=== PATIENT | male | born 1945 | race Caucasian/White ===

== ENCOUNTER 2017-03-31 14:00 | Inpatient (IN) | payer MEDICARE, OTHER ==
[~2017-03-31] VITALS: Ht 160 cm; Wt 88.2 kg
[2017-03-31 15:02] VITALS: BP 129/71; BMI 30.4
--- NOTE | 2017-03-31 15:45 | NUR ---
PATIENT IS ADMITTED THROUGH CONSULT OF DR. MELISSA. HE IS LIVING AT HOME WITH HIS SPOUSE PATIENT HAS A HX OF PARKINSONS, AFIB AND IS ON COUMADIN. RECENTLY HIS SISTER IN NOVEMBER AND IN DECEMBER HE BEGAN DISPLAYING MORE DEPRESSION A SENSE OF GUILT THAT HE DID NOT SEE HER MUCH. HE ALSO LOST A CAT A COUPLE OF WEEKS AGO AND DR. MELISSA SAYS FAMILY STATES THAT IS WHEN THE HALLUCINATIONS BEGAN. 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 PATIENT PRESENTS NEAT, CLEAN AND WEARING COMFORTABLE CLOTHING. HE WEARS GLASSES AND HAS HIS OWN TEETH, NO HEARING IMPAIRMENTS OR SKIN ISSUES. HE DOES HAVE SLIGHT EDEMA TO HIS FEET AND IS WEARING FLIP FLOPS, DID EXPLAIN "YES, THEY ARE COMFORTABLE, BUT THEY ARE NOT SAFE." PATIENT HAS HAD HALLUCINATIONS IN THE PAST TWO WEEKS AND HE IS SEEING THINGS AND HEARING THINGS THAT ARE NOT REAL AND HE IS NOT ABLE TO DIFFERENTIATE WHAT IS REAL OR NOT REAL. 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 FAMILY SAYS THIS IS TRUE AND NOTHING NEW. PATIENT DOES HAVE PARKINSONS AND DEPRESSION AND HE IS HAVING POOR SHORT TERM MEMORY RECALL AND THE CONFUSION HAS WORSENED IN THE PAST TWO WEEKS AND FAMILY FEELS LIKE BEING HERE IS THE BEST THING. PATIENT DID SEE A NEUROLOGIST TODAY AND SEROQUEL WAS PRESCRIBED AND TRAZODONE STOPPED.
[2017-03-31] MEDS ORDERED: SEROQUEL25 MG PO (16:13)
[2017-03-31] MEDS ORDERED: KLONOPIN0.5 MG PO (16:16)
[2017-03-31] MEDS ORDERED: CLONAZEPAM0.25 MG/TA PO (16:18)
[2017-03-31] MEDS ORDERED: COUMADIN6 MG PO (16:19)
[2017-03-31] MEDS ORDERED: FLORANEX / LACT1 TAB PO (16:20)
[2017-03-31] MEDS ORDERED: SINEMET 25-1001 EACH PO (16:21)
[2017-03-31] MEDS ORDERED: PROAIR HFA8.5 GM INH (16:23)
[2017-03-31] MEDS ORDERED: METOPROLOL TART50 MG PO (16:23)
[2017-03-31] MEDS ORDERED: VIAGRA50 MG PO (16:25)
[2017-03-31] MEDS ORDERED: LISINOPRIL10 MG PO (16:25)
[2017-03-31] MEDS ORDERED: PRAVACHOL40 MG PO (16:25)
[2017-03-31] MEDS ORDERED: PROZAC10 MG PO (16:39)
[2017-03-31] MEDS ORDERED: RESTASIS EYE DR30 EA EACH EYE (17:18)
[2017-03-31 19:30] VITALS: BP 141/70
--- NOTE | 2017-03-31 20:30 | NUR ---
ASSESSMENT COMPLETED. RECEIVED IN DAYROOM, SITTING IN CHAIR WATCHING TV. AWAKE AND ALERT X 3. SAYS HE IS IN HOSPITAL TO GET MEDICATIONS FOR ANXIETY. CALM AND COOPPERATIVE WITH ASSESSMENT. COMPLIANT WITH TAKING MEDICATIONS AND UNIT MILIEU. CONTINUE WITH PLAN OF CARE.
[2017-03-31 20:35] LABS: BASOPHILS 0.2 % (0-2); EOSINOPHILS 1.3 % (0-7); HEMATOCRIT 43.8 % (42.0-54.0); HEMOGLOBIN 14.7 g/dL (13.5-17.5); LYMPHOCYTES 27.8 % (15-50); MCH 30.9 pg (26.0-34.0); MCHC 33.6 g/dL (31.0-37.0); MCV 92.2 fL (80.0-100.0); MEAN PLATELET VOLUME 11.5 fL (7.4-10.4); MONOCYTES 12.6 % (2-11); NEUTROPHILS 58.1 % (40-80); PLATELET COUNT 154 10x3/uL (130-400); RBC 4.75 10x6/uL (4.20-6.10); RDW 14.5 % (11.5-14.5); WBC 5.2 10x3/uL (4.8-10.8)
[2017-03-31 20:42] LABS: INR 3.64 (0.85-1.17); PROTIME 36.6 SECONDS (11.6-15.0)
[2017-03-31 20:46] LABS: HEMOGLOBIN A1C 5.8 % (4.8-6.0)
[2017-03-31 21:10] LABS: ANION GAP 11.2 mmol/L (8-16); BILIRUBIN - TOTAL 3.19 mg/dL (0.2-1.3); CALCIUM 8.9 mg/dL (8.5-10.1); CARBON DIOXIDE 31.5 mmol/L (21.0-32.0); CHOL - HDL RATIO 2.1 ratio (2.3-4.9); CREATININE - SERUM 1.2 mg/dL (0.6-1.3); LDL-HDL RATIO 0.7 ratio (1.5-3.5); POTASSIUM - SERUM 3.7 mmol/L (3.5-5.1); PROTEIN - SERUM 7.2 g/dL (6.4-8.2); THYROID STIMULATING HORMONE 0.67 uIU/mL (0.36-3.74)
[2017-04-01 09:07] VITALS: BP 156/86
[2017-04-01 12:03] VITALS: BMI 30.4
--- NOTE | 2017-04-01 12:17 | NUR ---
B) PATIENTS SPOUSE CALLED TO CHECK ON PATIENT. PATIENT IS CALM AND PLEASANT, HE HAS A LOT OF CONFUSION. IT IS DIFFICULT FOR HIM TO FOLLOW SIMPLE DIRECTIONS. HE ADMITS "I DON'T KNOW WHAT TO DO" WITH USING THE WALKER HE HAS TO BE GIVEN DIRECTION AT FIRST. HE DOES AMBULATE WITH A WALKER. HE DID SEE DR. MARTINEZ TODAY. I) PROVIDE PRESCRIBED MEDS. R) PATIENT IS COMPLIANT WITH MEDS AND UNIT MILIEU. P) CONTINUE POC.
[2017-04-01 13:19] LABS: APPEARANCE CLEAR (CLEAR); BILIRUBIN NEGATIVE (NEGATIVE); COLOR YELLOW (YELLOW); GLUCOSE NEGATIVE (NEGATIVE); KETONE NEGATIVE (NEGATIVE); LEUKOCYTE ESTERASE NEGATIVE (NEGATIVE); NITRITE NEGATIVE (NEGATIVE); PROTEIN NEGATIVE (NEGATIVE); UROBILINOGEN NORMAL (NORMAL)
[2017-04-01 19:30] VITALS: BP 118/61
--- NOTE | 2017-04-01 21:00 | NUR ---
B) RECEIVED IN DAYROOM, SITTING IN RECLINER. 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 CALM AND COOPERATIVE WITH ASSESSMENT. CAN AMBULATE INDEPENDENTLY, WITH SLOW GAIT. I) ADMINISTERED PRESCRIBED MEDICATIONS, AFTERWARDS HE BECAME UPSET THAT HE COULD NOT GO ON TO BED. R) MEDICATION COMPLIANT. P) CONTINUE PLAN OF CARE.
[2017-04-02 07:00] VITALS: BP 142/88
[2017-04-02 09:05] LABS: INR 2.23 (0.85-1.17); PROTIME 24.8 SECONDS (11.6-15.0)
[2017-04-02 11:22] VITALS: BMI 30.3
--- NOTE | 2017-04-02 11:23 | NUR ---
UPDATE PT'S SPOUSE TODAY ON PT'S BEHAVIOR. REVIEWED VISITATION TIMES. PT WAS RESTLESS AND AGITATED THIS MORNING BUT HE HAS SINCE CALMED DOWN. NO AGGRESSION NOTED. PT IS CONFUSED AND HAS DIFFICULTY UNDERSTANDING EDUCATION AND REDIRECTION. WILL CONTINUE TO REDIRECT FREQUENTLY. MEDICATIONS GIVEN ORDERED. FALL PRECAUTIONS MAINTAINED. PT GIVEN EDUCATION ON PROPER USE OF WALKER WITH PT SHOWING NO SIGNS OF RETAINING. WILL CONTINUE TO MONITOR AND CONTINUE WITH PLAN OF CARE.
--- NOTE | 2017-04-02 11:36 | PSY ---
PATIENT NAME:JAYNA WEBB MEDICAL RECORD: [id number] : 41 LOCATION:[facility] ADMISSION DATE: 03/31/17 ACCOUNT: [id number] PSYCHIATRIC EVALUATION DATE OF EVALUATION: 04/01/17 IDENTIFYING DATA: The patient is 71 years old and he is admitted to the hospital on a voluntary basis secondary to hallucinations. CHIEF COMPLAINT: "I am here to get straightened out." HISTORY OF PRESENT ILLNESS: The patient is a very nice gentleman who lives at home with his . He has a history of Parkinson disease and recently, his sister . At that time, he began displaying a lot of depressive symptoms including some guilt that he did not see her more. He also had a pet about a week ago and he was very attached to the pet. Apparently shortly after this, he began having active hallucinations. The patient endorses numerous neurovegetative depressive symptoms, but then says that he is not actually depressed. He has no history of substance abuse. He was recently started by his neurologist on a low dose of Seroquel. PAST MEDICAL HISTORY: Of course is most significant for the Parkinson disease, which the patient says has been present for many years. He indicated several decades, which I doubt is not at all accurate. He also has a history of atrial fibrillation. PAST PSYCHIATRIC HISTORY: None. FAMILY HISTORY: Unknown. ALLERGIES: No known drug allergies. CURRENT MEDICATIONS: Include Prozac, lisinopril, Coumadin, Klonopin, Seroquel, Sinemet, Pravachol, Lopressor, Ventolin. SOCIAL HISTORY: The patient is and has adult children. He has functioned well both socially and occupationally throughout much of his adult life. He has no history of legal entanglements or substance abuse. MENTAL STATUS EXAMINATION: The patient is awake, alert and oriented to person and place. He is mistaken about the date. I know it was a casual mistake, but it is wrong. He says that the year is 2006 and when asked to repeat that he says it again. He does know the month. I am sure he meant 2016, but again he missed the answer to the question. He states that he really is not sure why he is here except that he needs some help. He is vague about what kind of help and when asked about hallucinations, he dismisses it or minimizes any of the symptoms. He also endorses lots of depressive symptoms, but then says he is not depressed. His mood is euthymic. His affect is appropriate. Thought processes are circumstantial. Memory and concentration are moderately impaired. His abstraction abilities are mildly impaired. He denies that he would seek to harm himself or others and he denies psychotic symptoms. ASSETS: Supportive family members. LIABILITIES: Limited insight. DIAGNOSTIC IMPRESSION: AXIS I: 1. Major depression, moderate severity without psychotic features. 2. Parkinson's related dementia. AXIS II: None. AXIS III: Parkinson disease, atrial fibrillation. AXIS IV: Moderate stressors. AXIS V: Global assessment of functioning is 35. PLAN: At this time, the patient is admitted to the hospital secondary to psychotic symptoms probably associated with the Parkinson disease and the Sinemet as opposed to psychotic symptoms associated with a major depression. Nevertheless, I do not think he is seriously and significantly depressed and I am going to treat him with an antidepressant medication. He is on Prozac. I am not sure how long he has been on that, but I likely will change that to a different medication. He has only been on the Seroquel for a few days and I think that is a reasonable choice and dose given the Parkinson disease. I think his long-term prognosis is guarded. He clearly has a progressive disease and of course the dementia is almost certainly associated with the Parkinson disease, especially if he has had it for a long time. The level of impairment may be misleading given his underlying depressive symptoms associated with the of a pet and his sister this year. TRANSINT:[id number] Voice Confirmation ID: [id number] DOCUMENT ID: [id number] SACHA MARTINEZ MD at 1136 CC: [id number] DICTATION DATE: 04/01/17 1120 BRAND LEAD: 04/01/17 1142 ADM IN [place] [id number] [place] [address]
--- NOTE | 2017-04-02 18:05 | NUR ---
UPDATED PT'S FAMILY ON MEDICATIONS AND PT'S BEHAVIOR.
[2017-04-02 19:30] VITALS: BP 142/75
--- NOTE | 2017-04-03 02:52 | NUR ---
B) Patient is alert and oriented to self and being in a hospital, calm and cooperative, very careful with answers to questions to hide his dementia, will change subject or get others to answer for him, or use vague responses I) Administtered perscribed medications, monitored for safety, R) Medication compliant, no hallucinations noted this shift, pleasant and friendly to staff, P) Continue plan of care.
[2017-04-03 08:13] VITALS: BP 153/69
[2017-04-03 11:12] LABS: VITAMIN D 25 HYDROXY 30.7 ng/mL (30.0-100.0)
--- NOTE | 2017-04-03 13:00 | NUR ---
Alert and oriented to name only, very vague responses to questions. Calm and pleasant with care. Monitor for any hallucinations, redirect and reorient. Compliant with medications. No hallucinations noted at this time, patient does keep getting up and thanking everybody and then turns away as if he is leaving, redirected that he is not discharging today.. redirects easily and goes to sit back down. Safety maintained. Continue plan of care.
[2017-04-03 19:19] VITALS: BP 189/98
--- NOTE | 2017-04-03 20:01 | NUR ---
PATIENT TOOK CHAIR AND HIT DOOR IN AN ATTEMPT TO BUST OUT GLASS. PRN ATIVAN 0.5 MG IM GIVEN FOR HIGH ANXIETY.
--- NOTE | 2017-04-03 22:34 | NUR ---
RECEIVED IN HALLWAY. VERY CONFUSED. EXIT SEEKING. NOTED ANXIETY. KICKING DOORS TO GET OUT. CALM AND COOPERATIVE WITH ASSESSMENTS. UNABLE TO REDIRECT AND REORIENT AT TIMES. RESTING IN BED EYES OPEN AT THIS TIME. CONTINUE PLAN OF CARE
[2017-04-04 03:09] LABS: RAPID PLASMA REAGIN Non Reactive (Non Reactive)
[2017-04-04 09:04] VITALS: BP 203/109
--- NOTE | 2017-04-04 09:15 | NUR ---
AWAKE AND ORIENTED TO SELF AND BEING IN HOSPITAL. SITTING IN CHAIR QUIET AND WATCHING PEERS AND STAFF. CALM AND COOPERATIVE WITH ASSESSMENT, BUT CONFUSED. NO AGGRESSION OF HALLUCINATIONS NOTED. ADMINISTER PRESCRIBED MEDICATIONS. COMPLIANT WITH TAKING MEDS. FALLS AND SAFETY MAINTAINED. CONTINUE POC.
[2017-04-04 11:22] LABS: INR 1.88 (0.85-1.17); PROTIME 21.6 SECONDS (11.6-15.0)
--- NOTE | 2017-04-04 14:08 | PN ---
PATIENT:JAYNA WEBB MEDICAL RECORD: [id number] LOCATION:[facility] ADMISSION DATE: 03/31/17 PROGRESS NOTE DATE OF SERVICE: 04/03/2017 SUBJECTIVE: The patient's case was discussed with staff. He has no new complaint. OBJECTIVE: The patient is in good behavioral control. He is very pleasant, but clearly quite confused. He does not really realize he is so confused or I suspect he does not appreciate to what degree. 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 I think the patient is at least moderate in his severity, he may even be closer to severe and we will find out tomorrow when he is tested by Dr. Donna Menard. ASSESSMENT: No change in diagnoses. PLAN: I am not going to continue the Prozac. I have discontinued it altogether. I am not sure he needs an antidepressant medication or at least I believe he does not need one currently. I am concerned about the number of medicines he takes with potential interactions that may have unforeseen consequences. Of course, in general, it is preferable to maintain anyone at any age and condition on his few medicines at a lower dose as possible, and so consistent with this line of thinking, I do not see an indication for the Prozac, which probably is one of at least well tolerated SSRIs in the elderly to begin with. TRANSINT:[id number] Voice Confirmation ID: [id number] DOCUMENT ID: [id number] SACHA MARTINEZ MD at 1408 CC: [id number] DICTATION DATE: 04/03/17 1504 PIT INSPECTOR: 04/03/17 191 ADM IN [facility] [address] [place] [address]
[2017-04-04 19:34] VITALS: BP 176/110
[2017-04-04 19:42] VITALS: BP 176/110
--- NOTE | 2017-04-04 21:38 | NUR ---
RECEIVED AT NURSES STATION. STANDING AND TALKING TO PEER. VERY CONFUSED. CALM AND COOPERATIVE WITH CARE AND ASSESSMENTS. NO SIGNS OF AGGRESSION. NOT EXIT SEEKING THIS PM. REDIRECT AND REORIENT NEEDED. RESTING IN BED EYES CLOSED. CONTINUE PLAN OF CARE
[2017-04-05 06:10] LABS: PROTIME 22.7 SECONDS (11.6-15.0)
[2017-04-05 07:32] VITALS: BP 178/108
--- NOTE | 2017-04-05 12:17 | PN ---
PATIENT:JAYNA WEBB MEDICAL RECORD: [id number] LOCATION:[facility] ADMISSION DATE: 03/31/17 PROGRESS NOTE DATE OF SERVICE: 04/04/2017 SUBJECTIVE: The patient's case was discussed with staff. He has no new complaint. OBJECTIVE: The patient has been tested by Dr. Donna Sepulveda and scored worse than I would have guessed. 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 I do not mean this in a way that he is not honest or genuine I just mean that he is outgoing and has an extrovert personality. I suppose that this gives him the impression of being more intact because he is more socially aware of his surroundings. I would have guessed he was going to score in the 17 or 18 range rather than the 13 range. This places him in the severe category. Last night, he became acutely confused and agitated. He took a chair and was hitting it against the wall. He did require p.r.n. medication because of this agitation. ASSESSMENT: No change in diagnoses. PLAN: Unfortunately, the patient's condition is worse than I anticipated. I must recommend alf care for him given that I cannot predict if or when he is going to become agitated and this would be a real danger for his elderly . I am not sure how she is going to take this news or information. I am also going to change his antipsychotic medicine from Seroquel to Trilafon. His group home prognosis is unfortunately poor. TRANSINT:[id number] Voice Confirmation ID: [id number] DOCUMENT ID: [id number] SACHA MARTINEZ MD at 1217 CC: [id number] DICTATION DATE: 04/04/17 1432 BAG SHAKER: 04/04/17 2230 ADM IN [facility] [address] [place] [address]
--- NOTE | 2017-04-05 16:43 | NUR ---
ASSESSMENT COMPLETED PER FLOW SHEET. CALM AND COOPERATIVE WITH ASSESSMENT AND CARE. HE STILL IS VERY CONFUSED AT TIMES. ADMINISTERED PRESCRIBED MEDS. MONITOR FOR SAFETY. CONTINUE PLAN OF CARE.
--- NOTE | 2017-04-05 18:00 | NUR ---
PATIENT TOLD "I AM FEELING SUICIDAL NOW." AFTER NURSE SPOKE WITH , I TALKED WITH PATIENT. HE DENIED SELF HARM OR SUICIDAL PLAN. SAYS HE FELT SCARED LAST NIGHT THAT HE WAS GOING TO OR SOMETHING HAPPEN TO HIM. HE WAS HEARING VOICES IN HIS HEAD. HE ATE 50% OF HIS SUPPER AFTER TALKING WITH HIS . "I FEEL ANXIOUS OR SCARED REALLY." ENCOUAGE HIM TO EXPRESS HIS FEELINGS TO STAFF.
--- NOTE | 2017-04-06 00:31 | NUR ---
B) Recieved patient in the hallway, alert and oriented to self, calm and cooperative, I) Administered perscribed medications, monitored for safety, R) Medication compliant, difficulty falling asleep, P) Continue plan of care.
--- NOTE | 2017-04-06 00:41 | NUR ---
PRN Klonipin 0.5 mg PO given for anxiety at 00:40.
[2017-04-06 07:48] VITALS: BP 181/92
--- NOTE | 2017-04-06 09:00 | NUR ---
ASSESSMENT COMPLETED PER FLOW SHEET. CALM AND COOPERATIVE WITH ASSESSMENT AND CARE. WILL CONTINUE PLAN OF CARE.
--- NOTE | 2017-04-06 10:51 | NUR ---
LATE ENTRY FROM 04/05: SW SPOKE WITH PT'S , TONEY, ON THE PHONE ABOUT DISCHARGE PLANNING AND PT'S MEDICATION REGIMEN. SW DISCUSSED THE CARING PLACE AND BEING PROACTIVE WITH TWO DIFFERENT LEVEL OF CARE PLANS. TONEY SEEMED TO BE LEANING TOWARDS TAKING PT HOME WITH 20/03 CARE.TONEY VERBALIZED UNDERSTANDING OF DISCHARGE NEEDS AND MEDICATION REGIMEN.
--- NOTE | 2017-04-06 12:43 | NUR ---
Nutrition Follow Up: Pt is eating 78% meal avg on a regular diet. No new wt to assess. +BM 04/05/17. Meds and labs reviewed. Rec continue current diet. RD following.
--- NOTE | 2017-04-06 13:34 | PN ---
PATIENT:JAYNA WEBB MEDICAL RECORD: [id number] LOCATION:[facility] ADMISSION DATE: 03/31/17 PROGRESS NOTE DATE OF SERVICE: 04/05/2017 SUBJECTIVE: The patient's case was discussed with staff. He has no new complaint. OBJECTIVE: The patient is in good behavioral control with poor insight about his condition. He generally tolerates his medicines well. He has not been agitated or disruptive today. As mentioned yesterday, the testing from Dr. Donna Sepulveda indicates a severe level of impairment requiring 49-kuxn-t-day supervision. The findings have been explained to the family, they understand the situation, but are visibly shaken by them. The family is going to have to consider where they want the patient housed. Obviously home is the least restrictive setting; however, given his tendency to become quite agitated and confused and even delusional at times particularly at night I must say I do not think this is a safe situation for the patient's . That has been explained, of course the decision and whether or not the risk and benefit analysis lands in favor of keeping him at home is their decision my role is to explain the situation and make what I think is the safest recommendation, which he is a intermediate. ASSESSMENT: No change in diagnoses. PLAN: Current medicines have been reviewed and will be maintained. TRANSINT:[id number] Voice Confirmation ID: [id number] DOCUMENT ID: [id number] SACHA MARTINEZ MD at 1334 CC: [id number] DICTATION DATE: 04/05/17 1229 CABINETMAKER HELPER: 04/05/17 2103 ADM IN [place] [address] [place] [address]
[2017-04-06 20:10] VITALS: BP 166/93
--- NOTE | 2017-04-07 03:04 | NUR ---
B) Patient alert and oriente dto self, very confused at times, cooperative and redirects easily, I) Administered perscribed medications, PRN Ativan 0.5 mg PO given for anxiety at 00:58, R) Medication compliant, resting quietly now in bed, P) Continue plan of care.
[2017-04-07 07:54] VITALS: BP 187/96
--- NOTE | 2017-04-07 16:14 | NUR ---
restless at times but easily redirected. no aggression noted. medications given as ordered. fall precautions maintained. will continue to monitor and continue with plan of care. updated spouse and pt's behavior.
[2017-04-07 19:30] VITALS: BP 131/72
--- NOTE | 2017-04-08 00:45 | NUR ---
B) Patient alert and oriented to self, calm and cooperative, very confused, wanders at times, I) Administered perscribed medicatiosn, monitored for safety and behaviors, R) Medication compliant. no outburst or behaviors noted, P) Continue plan of care.
[2017-04-08 07:47] VITALS: BP 178/92
[2017-04-08 08:19] LABS: INR 1.52 (0.85-1.17); PROTIME 18.2 SECONDS (11.6-15.0)
[2017-04-08 19:30] VITALS: BP 144/84
--- NOTE | 2017-04-09 02:59 | NUR ---
B) Patient alert and oriented to self, restless and wannders at times, very confused, I) Administered scheduled medications, redirected as needed, monitored forr falls and safety, R) Medication compliant, social with staff, awakens several times at night, P ) Continue plan of care.
--- NOTE | 2017-04-09 05:30 | PN ---
PATIENT:JAYNA WEBB MEDICAL RECORD: [id number] LOCATION:[facility] ADMISSION DATE: 03/31/17 PROGRESS NOTE DATE OF SERVICE: 04/07/2017 SUBJECTIVE: No new complaint. OBJECTIVE: Staff report that the patient's family has informed us that the current hospital dose of Sinemet is less than what he had been receiving at home, he was receiving actually 1-1/2 tablets 3 times a day. This will be changed. The patient has done well over the last 24 hours. No evidence of severe agitation. On exam, mood is euthymic. Affect is rather constricted. Speech is low in volume and slow in production and rate. Content of thought is negative for overt psychosis. Sensorium unchanged. ASSESSMENT: No change in diagnosis. PLAN: 1. Advance Sinemet to 1-1/2 tabs t.i.d. 2. Continue all other current medications. 3. Continue supportive therapy. TRANSINT:[id number] Voice Confirmation ID: [id number] DOCUMENT ID: [id number] CHRISTIAN MAY III, MD at 0530 CC: [id number] DICTATION DATE: 04/07/17 1232 DIESEL ENGINE TESTER: 04/07/172010 ADM IN [facility] [address] [place] [address]
[2017-04-09 08:07] VITALS: BP 182/98
[2017-04-09 10:46] LABS: PROTIME 21.4 SECONDS (11.6-15.0)
[2017-04-09 10:49] LABS: INR 1.85 (0.85-1.17)
--- NOTE | 2017-04-09 17:19 | NUR ---
CONFUSED BUT KNOWS HE IS IN HOSPITAL,MONTH AND YEAR.DENIES HALLUCINATIONS .IS COMPLIANT WITH STAFF AND MEDS.WILL CONTINUE WITH PLAN OF CARE,MONITOR FOR CHANGES AND SAFETY.
[2017-04-09 20:01] VITALS: BP 138/70
--- NOTE | 2017-04-09 21:24 | NUR ---
RECIEVED IN DAYROOM. SITTING IN RECLINER. CALM AND COOPERATIVE WITH CARE AND ASSESSMENTS. NO SIGNS OF HALLUCIANTIONS. ENCOURAGE TO EXPRESS NEEDS. REORIENT NEEDED. CONTINUES TO SIT QUIETLY IN CHAIR. CONTINUE PLAN OF CARE
[2017-04-10 07:00] VITALS: BP 147/82
--- NOTE | 2017-04-10 13:11 | PN ---
PATIENT:JAYNA WEBB MEDICAL RECORD: [id number] LOCATION:[facility] MartinManny ADMISSION DATE: 03/31/17 PROGRESS NOTE DATE OF SERVICE: 04/06/2017 SUBJECTIVE: The patient's case was discussed with staff. He has no new complaint. OBJECTIVE: The patient is in good behavioral control. He has limited insight about his condition. He tolerates his medicines well. The patient is significantly and seriously impaired cognitively. He is having some sundowning behaviors. ASSESSMENT: No change in diagnoses. PLAN: Supportive and educational interventions were made. Skilled Nursing prognosis is guarded. I am going to start him on a scheduled dose of Klonopin. TRANSINT:[id number] Voice Confirmation ID: [id number] DOCUMENT ID: [id number] SACHA MARTINEZ MD at 1311 CC: [id number] DICTATION DATE: 04/06/17 1346 COATING OPERATOR: 04/06/17 1929 ADM IN [facility] [address] [place] [address]
[2017-04-10 19:45] VITALS: BP 159/91
--- NOTE | 2017-04-11 02:01 | NUR ---
RECEIVED IN HALLWAY. WALKING ABOUT. CONFUSED. CALM AND COOPERATIVE WITH CARE AND ASSESSMENTS. NO SIGNS OF HALLUCIANTIONS. REDIRECT AND REORIENT NEEDED. RESTING IN BED EYES CLOSED AT THIS TIME. CONTINUE PLAN OF CARE
[2017-04-11 06:28] LABS: INR 2.33 (0.85-1.17); PROTIME 25.7 SECONDS (11.6-15.0)
[2017-04-11 07:57] VITALS: BP 143/80
--- NOTE | 2017-04-11 10:47 | NUR ---
PT IS ALERT THIS AM. PT AM MEDS ADMINSITERED. PT COMPLIANT WITH MEDICATIONS. PT IN DAY ROOM WATCHING TV AT THIS TIME. [facility].
--- NOTE | 2017-04-11 13:45 | PN ---
PATIENT:JAYNA WEBB MEDICAL RECORD: [id number] LOCATION:[facility] MartinManny ADMISSION DATE: 03/31/17 PROGRESS NOTE DATE OF SERVICE: 04/10/2017 SUBJECTIVE: The patient's case was discussed with staff, he has no new complaint. OBJECTIVE: The patient is seriously and significantly impaired cognitively, but he has not had any more hallucinations nor has he had any agitated behavior. ASSESSMENT: No change in diagnoses. PLAN: Current medicines and therapies have been reviewed, both will be maintained. Long-term prognosis is guarded. I anticipate he can be transitioned out of the hospital soon. I have increased his Zoloft slightly. TRANSINT:[id number] Voice Confirmation ID: [id number] DOCUMENT ID: [id number] SACHA MARTINEZ MD at 1345 CC: [id number] DICTATION DATE: 04/10/17 1332 MANAGER CANCER: 04/10/17 1838 ADM IN [facility] [address] [place] [address]
[2017-04-11 19:26] VITALS: BP 153/89
--- NOTE | 2017-04-11 22:18 | NUR ---
RECEIVED IN HALLWAY. STANDING AT NURSES STATION. CONFUSED. CALM AND COOPERATIVE WITH CARE AND ASSESSMENTS. NO SIGNS OF HALLUCINATIONS. REDIRECT AND REORIENT NEEDED. RESTING IN BED EYES CLOSED AT THIS TIME. CONTINUE PLAN OF CARE
[2017-04-12 08:30] VITALS: Ht 160 cm; Wt 88.2 kg
[2017-04-12 08:37] VITALS: BP 177/101
--- NOTE | 2017-04-12 12:35 | PN ---
PATIENT:JAYNA WEBB MEDICAL RECORD: [id number] LOCATION:[facility] ADMISSION DATE: 03/31/17 PROGRESS NOTE DATE OF SERVICE: 04/11/2017 SUBJECTIVE: The patient's case was discussed with staff. He has no new complaint. OBJECTIVE: The patient is in good behavioral control with limited insight about his condition. He does tolerate his medicines well. ASSESSMENT: No change in diagnoses. PLAN: Current medicines and therapies have been reviewed, both will be maintained. Long-term prognosis is guarded. I anticipate he can be transitioned out of the hospital soon if this level of improvement is maintained. TRANSINT:[id number] Voice Confirmation ID: [id number] DOCUMENT ID: [id number] SACHA MARTINEZ MD at 1235 CC: [id number] DICTATION DATE: 04/11/17 1421 ELEMENTARY ESL TEACHER: 04/11/[address] [facility] [address] [place] [address]
[2017-04-12] MEDS ORDERED: METOPROLOL TART50 MG PO (12:49)
[2017-04-12] MEDS ORDERED: ZESTRIL40 MG PO (12:49)
[2017-04-12] MEDS ORDERED: SINEMET 25-1001 EACH PO (12:50)
[2017-04-12] MEDS ORDERED: NAMENDA5 MG PO (12:50)
[2017-04-12] MEDS ORDERED: KLONOPIN0.5 MG PO (12:50)
[2017-04-12] MEDS ORDERED: VITAMIN B-121000 MCG PO (12:51)
[2017-04-12] MEDS ORDERED: PERPHENAZINE2 MG PO (12:51)
--- NOTE | 2017-04-12 14:24 | NUR ---
Nutrition Follow Up: Chart reviewed. Pt is eating 93% meal avg sonia regular diet. +BM 04/10/17. Wt stable. No new labs to assess. Meds noted. Rec continue current diet. RD following.
--- NOTE | 2017-04-12 16:34 | NUR ---
B) Alert, calm, cooperative, med compliant, no aggression noted, no hallucinations reported. I) Meds admin per orders, group therapy provided. R) No s/s adverse reaction to meds, cooperative with group. P) Cont. plan of care including meds and group therapy.
[2017-04-12 19:30] VITALS: BP 146/83
--- NOTE | 2017-04-13 00:48 | NUR ---
B) Patient alert and oriented to self, watching TV, calm and cooperative, I) Administered schduled medications, monitored for safety, R) Medication compliant, P Continue plan of care.
--- NOTE | 2017-04-13 08:16 | NUR ---
SITTING AT NURSES STATION, CALM AND COOPERATIVE WITH ASSESSMENT AND CARE. MEDICATIONS ADMINISTER PER ORDERS. COMPLIANT WITH MEDICATIONS. FALL PRECAUTIONS MAINTAINED. WILL CONTINUE TO MONITOR. PATIENT IS SCHEDULED TO GO HOME WITH [facility] TODAY. ALL DISCHARGE PAPERWORK REVIEWED WITH FAMILY. ALL BELONGINGS BAGED AND ACCOUNTED FOR.
[2017-04-13 08:52] VITALS: BP 160/84
--- NOTE | 2017-04-13 12:35 | PN ---
PATIENT:JAYNA WEBB MEDICAL RECORD: [id number] LOCATION:[facility] ADMISSION DATE: 03/31/17 PROGRESS NOTE DATE OF SERVICE: 04/12/2017 SUBJECTIVE: The patient's case was discussed with staff. He has no new complaint. OBJECTIVE: The patient is in good behavioral control with limited insight about his condition. He tolerates his medicines well. He actually is oriented today, which is a significant improvement. ASSESSMENT: No change in diagnoses. PLAN: I anticipate the patient can be transitioned out of the hospital soon, perhaps as early as tomorrow morning assuming this level of improvement is maintained. His long-term prognosis is guarded. TRANSINT:[id number] Voice Confirmation ID: [id number] DOCUMENT ID: [id number] SACHA MARTINEZ MD at 1235 CC: [id number] DICTATION DATE: 04/12/17 1252 SUPERVISOR INSTRUMENT MAINTENANCE: 04/12/17 1638 ADM IN [id number] [place] [address]
--- NOTE | 2017-04-14 16:53 | PN ---
PATIENT:JAYNA WEBB MEDICAL RECORD: [id number] [facility] ADMISSION DATE: 03/31/17 PROGRESS NOTE DATE OF SERVICE: 04/13/2017 SUBJECTIVE: The patient's case was discussed with staff. He has no new complaint. OBJECTIVE: The patient is in good behavioral control with limited insight about his condition. He does tolerate his medicines well. ASSESSMENT: No change in diagnoses. PLAN: Supportive and educational interventions were made. The patient's long-term prognosis is guarded. He is going to be transitioned out of the hospital with his family. TRANSINT:[id number] Voice Confirmation ID: [id number] DOCUMENT ID: [id number] SACHA MARTINEZ MD at 1653 CC: [id number] DICTATION DATE: 04/13/17 1243 COMMUTER TRAIN OPERATOR: 04/13/17 1441 DIS IN 04/13/17 [id number] [place] [address]
== END 2017-04-13 10:00 | disposition home health service (06) | DRG 885 ==
LOC: D.PSYCH 14:00
PROVIDERS: Family Medicine; ADMIT Psychiatry & Neurology Psychiatry
DX: F32.1 Major depressive disorder, single episode, moderate (principal); G20 Parkinson's disease; F02.80 Dementia in other diseases classified elsewhere, unspecified severity, without behavioral disturbance, psychotic disturbance, mood disturbance, and anxiety; I48.91 Unspecified atrial fibrillation; F41.9 Anxiety disorder, unspecified; E78.5 Hyperlipidemia, unspecified; I10 Essential (primary) hypertension; Z74.09 Other reduced mobility